=== PATIENT | female | born 1990 | race African-American/Black ===

== ENCOUNTER 2017-10-25 11:24 | Emergency (ER) | payer SELFPAY ==
[2017-10-25 12:41] LABS: Bilirubin Small (Negative); Blood, Urine Small (Negative); Clarity CLOUDY (Clear); Glucose, Urine (Dipstick) Negative (Negative); Leukocyte Moderate (Negative); Nitrite Negative (Negative); Pregnancy Test - Urine (BHCG) Negative (Negative); Pregu Control Background? CLEAR/WHITE (CLR/WHITE); Pregu Control Bar Appear? YES (CONTROL BAR); Protein, Urine (Dipstick) Trace mg/dL (Neg-Trace); Specific Gravity 1.023 (1.002-1.036); Specific Gravity, Urine 1.023 (1.002-1.036)
[2017-10-25 12:44] LABS: Bacteria/HPF None Seen HPF (None Seen); Pathc Cast-AUWi Flag 2.03 (0-2.49)
[2017-10-25 13:04] LABS: Hyaline Casts/LPF 0-3 HYALINE CAST LPF (0-3 Hyaline)
--- NOTE | 2017-10-25 13:49 | RAD ---
KUB: Date: 10/25/17 COMPARISON: None. HISTORY: Abdominal pain. FINDINGS: Supine imaging is provided, limiting assessment for bowel obstruction and for free intraperitoneal ai r. The bowel gas pattern appears nonobstructed. Calcifications in the pelvis suggest phleboliths. IMPRESSION: No acute findings. POS: [facility]
== END 2017-10-25 13:16 | disposition home or self-care (01) ==
LOC: ERS 11:24
DX: N39.0 Urinary tract infection, site not specified (principal)
CPT/HCPCS: 74018; 81003; 81015; 81025